=== PATIENT | female | born 1985 | race Caucasian/White ===

== ENCOUNTER 2019-10-14 11:54 | Emergency (ER) | payer MEDICAID ==
[2019-10-14 12:20] LABS: BASOPHILS % (AUTO) 0.5 %; EOSINOPHILS % (AUTO) 0.6 %; HGB - HEMOGLOBIN 13.8 g/dL (12.0-16.0); LYMPHOCYTES % (AUTO) 32.3 %; MEAN CORPUSCULAR HEMOGLOBIN 28.4 pg (27.0-31.0); MEAN CORPUSCULAR HGB CONC 32.4 g/dL (32.0-36.0); MEAN CORPUSCULAR VOLUME 87.7 fL (81.0-99.0); MEAN PLATELET VOLUME 9.6 fL (7.9-10.8); MONOCYTES # (AUTO) 0.5 10^3/uL (0.0-1.0); MONOCYTES % (AUTO) 8.2 %; NEUTROPHILS # (AUTO) 3.6 10^3/uL (1.5-6.6); NEUTROPHILS % (AUTO) 57.9 %; PLT - PLATELET COUNT 241 10^3/uL (130-450); RED BLOOD COUNT 4.86 10^6/uL (4.20-5.40); RED CELL DISTRIBUTION WIDTH 13.8 % (12.0-15.0); WHITE BLOOD COUNT 6.2 x10^3/uL (4.8-10.8)
[2019-10-14 12:31] LABS: ALBUMIN 3.5 g/dL (3.2-5.5); ALBUMIN/GLOBULIN RATIO 0.8 (1.0-2.2); BILIRUBIN,TOTAL 0.8 mg/dL (0.2-1.0); CALCIUM 8.5 mg/dL (8.5-10.3); CREATININE 0.5 mg/dL (0.4-1.0); TOTAL PROTEIN 7.9 g/dL (6.7-8.2)
[2019-10-14 12:35] LABS: BILIRUBIN,URINE NEGATIVE (NEGATIVE); GLUCOSE, URINE (UA) NEGATIVE (NEGATIVE); KETONES,URINE (UA) NEGATIVE (NEGATIVE); LEUKOCYTE ESTERASE, URINE NEGATIVE (NEGATIVE); NITRITE,URINE NEGATIVE (NEGATIVE); OCCULT BLOOD,URINE MODERATE (NEGATIVE); PROTEIN,URINE NEGATIVE (NEGATIVE); UROBILINOGEN,URINE 0.2 (NORMAL) E.U./dL (NORMAL)
[2019-10-14 12:36] LABS: CLARITY,URINE HAZY (CLEAR)
[2019-10-14 12:43] LABS: BACTERIA,URINE Rare /HPF (None Seen); RBC,URINE 0-5 /HPF (0-5); SQUAMOUS EPITHELIAL CELL,UR MANY Squamous (<= Few)
--- NOTE | 2019-10-14 12:56 | ED Physician Documentation ---
History of Present Illness - Stated complaint Stated Complaint: FEM - Chief complaint Chief Complaint: Abd Pain - History obtained from History obtained from: Patient - Additonal information Additional information: Irish-speaking patient comes emergency department complaining of an episode of brownish bleeding with urination which she thinks was coming from her vagina this morning. Patient states that she has not been having any pain. She is about 12 weeks and is scheduled to have an ultrasound tomorrow. She does have an [employer] PIT CREW PERSON that she has been seeing for her care. Patient denies any trauma but does note that she was sexually active 2 nights ago. She has had 2 other pregnancies which have not had any complications. Patient denies any other symptoms of illness. No dysuria. No nausea or vomiting. No bleeding since the incident. Patient has not noticed any blood in her underwear, but only had the episode when she urinated when she wiped. She states she is not bleeding at this time. Patient denies seeing any other tissue or clots with blood. No other complaints at this time. Review of Systems Ten Systems: 10 systems reviewed and negative Constitutional: reports: Reviewed and negative Eyes: reports: Reviewed and negative Ears: reports: Reviewed and negative Nose: reports: Reviewed and negative Throat: reports: Reviewed and negative Cardiac: reports: Reviewed and negative Respiratory: reports: Reviewed and negative GI: reports: Reviewed and negative : reports: Vaginal bleeding Skin: reports: Reviewed and negative Musculoskeletal: reports: Reviewed and negative Neurologic: reports: Reviewed and negative Psychiatric: reports: Reviewed and negative Endocrine: reports: Reviewed and negative Immunocompromised: reports: Reviewed and negative PD PAST MEDICAL HISTORY - Present Medications Home Medications: Ambulatory Orders Medication Instructions Recorded Confirmed No Known Home Medications 10/14/19 10/14/19 - Allergies Allergies/Adverse Reactions: Allergies Allergy/AdvReac Type Severity Reaction Status Date / Time No Known Drug Allergies Allergy Verified 10/14/19 12:02 PD ED PE NORMAL - Vitals Vital signs reviewed: Yes - General General: Alert and oriented X 3, No acute distress - HEENT HEENT: Atraumatic, PERRL, EOMI, Moist mucous membranes - Neck Neck: Supple, no meningeal sign - Cardiac Cardiac: RRR, No murmur - Respiratory Respiratory: No respiratory distress, Clear bilaterally - Abdomen Abdomen: Soft, Non tender, Non distended - Back Back: No CVA TTP - Derm Derm: Normal color, Warm and dry, No rash - Extremities Extremities: No deformity, No edema, No calf tenderness / cord - Neuro Neuro: Alert and oriented X 3, Other (Grossly normal) - Psych Psych: Normal mood, Normal affect Results - Vitals Vitals: Vital Signs - 24 hr 10/14/19 10/14/19 11:55 14:20 Temperature 36.8 C 36.8 C Heart Rate 65 61 Respiratory 18 16 Rate Blood Pressure 142/85 H 133/75 H O2 Saturation 99 99 Oxygen O2 Source Room air - Labs Labs: Laboratory Tests 10/14/19 10/14/19 10/14/19 12:10 12:10 12:10 WBC 6.2 RBC 4.86 Hgb 13.8 Hct 42.6 MCV 87.7 MCH 28.4 MCHC 32.4 RDW 13.8 Plt Count 241 MPV 9.6 Neut # (Auto) 3.6 Lymph # (Auto) 2.0 [place] # (Auto) 0.5 Eos # (Auto) 0.0 Baso # (Auto) 0.0 Absolute Nucleated RBC 0.00 Nucleated RBC % 0.0 Sodium 134 L Potassium 3.6 Chloride 100 L Carbon Dioxide 22 Anion Gap 12.0 BUN 6 Creatinine 0.5 Estimated GFR (MDRD) 140 Glucose 93 Calcium 8.5 Total Bilirubin 0.8 AST 100 H ALT 179 H Alkaline Phosphatase 79 Total Protein 7.9 Albumin 3.5 Globulin 4.4 H Albumin/Globulin Ratio 0.8 L Lipase 35 Urine Color Urine Clarity Urine pH Ur Specific [place] Urine Protein Urine Glucose (UA) Urine Ketones Urine Occult Blood Urine Nitrite Urine Bilirubin Urine Urobilinogen Ur Leukocyte Esterase Urine RBC Urine WBC Ur Squamous Epith Cells Urine Bacteria Ur Microscopic Review Urine Culture Comments Blood Type AB POSITIVE 10/14/19 12:35 WBC RBC Hgb Hct MCV MCH MCHC RDW Plt Count MPV Neut # (Auto) Lymph # (Auto) [place] # (Auto) Eos # (Auto) Baso # (Auto) Absolute Nucleated RBC Nucleated RBC % Sodium Potassium Chloride Carbon Dioxide Anion Gap BUN Creatinine Estimated GFR (MDRD) Glucose Calcium Total Bilirubin AST ALT Alkaline Phosphatase Total Protein Albumin Globulin Albumin/Globulin Ratio Lipase Urine Color YELLOW Urine Clarity HAZY Urine pH 7.0 Ur Specific [place] 1.015 Urine Protein NEGATIVE Urine Glucose (UA) NEGATIVE Urine Ketones NEGATIVE Urine Occult Blood MODERATE H Urine Nitrite NEGATIVE Urine Bilirubin NEGATIVE Urine Urobilinogen 0.2 (NORMAL) Ur Leukocyte Esterase NEGATIVE Urine RBC 0-5 Urine WBC 0-3 Ur Squamous Epith Cells MANY Squamous H Urine Bacteria Rare Ur Microscopic Review INDICATED Urine Culture Comments NOT INDICATED Blood Type PD MEDICAL DECISION MAKING - ED course Complexity details: reviewed old records, reviewed results, re-evaluated patient, considered differential, d/w patient ED course: The patient was extremely well-appearing, and was not currently bleeding. I suspected she probably either had a subchorionic hemorrhage or some cervical bleeding from the sexual activity. The patient had no pain was hemodynamically stable, and given these 2 things, I felt that she was able to wait to have her ultrasound until tomorrow. Her work-up here was unremarkable. An attempt was made to find heart tones, but this was unsuccessful, so bedside ultrasound was performed. This showed a sac within the uterus, but without an obvious fetus. No cardiac activity was noted in any of the tissue associated with the sac. I discussed with the patient through trace clerk services that at this point in time, we have found an empty sac in the uterus, but no evidence of the fetus. It is possible, though unlikely that the is significantly earlier than the patient thought. However, given the bleeding that the patient has had, along with the lack of evidence of development, it is very likely that the patient has an impending miscarriage. I have discussed with the patient that it is important for her to follow-up for her formal ultrasound tomorrow to get exact measurements and gestational dating. She should also plan to follow-up with her [employer]W PERSON within the next 3 days for repeat beta hCG levels to further evaluate. We have discussed that if the patient begins bleeding again, she is most likely having a miscarriage. If she develops severe pain or very heavy vaginal bleeding with lightheadedness or shortness of breath, she should return to the emergency department. Departure - Departure Disposition: 01 Home, Self Care Clinical Impression: Threatened affecting intrauterine Condition: Stable Instructions: ED Miscarriage Poss Print Language: Irish Comments: We have performed a bedside ultrasound today which shows a sac in your uterus, but as yet, we do not see developing fetus within the sac. It is possible that your is earlier than you thought it was, but it is also possible that the baby is not developing and you will have a miscarriage. The only way to know for sure is to get repeat hormone levels and ultrasounds done. You should continue your plans to follow-up for ultrasound tomorrow, and should also see your OB doctor within the next 3 days to have a repeat set of hormones done. Please call tomorrow to set up an appointment to be seen in the next 2 days to have the repeat hormones done. At that time, your doctor can review your formal ultrasound results and determine whether further testing is needed. If you start bleeding, you are most likely having a miscarriage, and your body will take care of this on its own. However, if you develop severe pain or bleeding, you should return to the emergency department. Discharge Date/Time: 10/14/19 14:35
[2019-10-14 14:21] VITALS: BP 133/75
== END 2019-10-14 14:35 | disposition home or self-care (01) ==
LOC: ED 11:54
DX: O20.0 Threatened abortion (principal); Z3A.12 12 weeks gestation of pregnancy
CPT/HCPCS: 36415; 80053; 81001; 81003; 83690; 84702; 85025; 86900; 86901; 87086; 99284

== ENCOUNTER 2019-10-15 12:30 | Outpatient (CLI) | payer MEDICAID ==
--- NOTE | 2019-10-15 16:30 | Ultrasound Report ---
PROCEDURE: OB First Trimester INDICATIONS: POSITIVE TEST OUTSIDE/PRIOR DATING DATA: Last menstrual period (LMP): 07/10/19. LMP-based estimated date of delivery (FARHAN): 04/15/20. First dating scan (date and location): 10/15/19. Estimated date of delivery (FARHAN) from first dating scan: 06/09/20. TECHNIQUE: Real-time scanning was performed of the fetus and maternal pelvic organs, with image documentation. COMPARISON: none FINDINGS: Embryo: Intrauterine with crown rump length measuring 0.38 cm, corresponding to 6 weeks 0 days. Measurement variability in dating: +/- 4 weeks by LMP, +/- 7 days by mean sac diameter (use before 6 weeks gestation if crown-rump length not able to be measured), +/- 5 days by crown-rump length (6-12 weeks gestation). Maternal organs: Ovaries are unremarkable. Limited images through the kidneys demonstrate no hydron ephrosis. IMPRESSION: 1. Single live intrauterine with ultrasound gestational age of 6 weeks 0 days, with ultra sound FARHAN of 06/09/20. 2. Recommend followup imaging at 20-22 weeks for dates and anatomy. Reviewed by: Sybil Millan MD on 10/15/2019 4:28 PM PDT Approved by: Sybil Millan MD on 10/15/2019 4:28 PM PDT Station ID: [id number]
--- NOTE | 2019-10-15 16:31 | Ultrasound Report ---
PROCEDURE: OB Transvaginal INDICATIONS: POSITIVE TEST OUTSIDE/PRIOR DATING DATA: Last menstrual period (LMP): 07/10/19. LMP-based estimated date of delivery (FARHAN): 04/15/20. First dating scan (date and location): 10/15/19. Estimated date of delivery (FARHAN) from first dating scan: 06/09/20. TECHNIQUE: Real-time scanning was performed of the fetus and maternal pelvic organs, with image documentation. COMPARISON: none FINDINGS: Embryo: Intrauterine with crown rump length measuring 0.38 cm, corresponding to 6 weeks 0 days. Measurement variability in dating: +/- 4 weeks by LMP, +/- 7 days by mean sac diameter (use before 6 weeks gestation if crown-rump length not able to be measured), +/- 5 days by crown-rump length (6-12 weeks gestation). Maternal organs: Ovaries are unremarkable. Limited images through the kidneys demonstrate no hydron ephrosis. IMPRESSION: 1. Single live intrauterine with ultrasound gestational age of 6 weeks 0 days, with ultra sound FARHAN of 06/09/20. 2. Recommend followup imaging at 20-22 weeks for dates and anatomy. Reviewed by: Sybil Millan MD on 10/15/2019 4:30 PM PDT Approved by: Sybil Millan MD on 10/15/2019 4:30 PM PDT Station ID: [id number]
== END 2019-10-15 12:31 | disposition home or self-care (01) ==
LOC: DI 12:30
PROVIDERS: ATTEND Obstetrics & Gynecology
DX: Z32.01 Encounter for pregnancy test, result positive (principal)
CPT/HCPCS: 76801; 76817

== ENCOUNTER 2019-10-18 07:00 | Outpatient (CLI) | payer MEDICAID ==
[2019-10-19 19:35] LABS: TRICHOMONAS VAGINALIS DNA NEGATIVE (NEGATIVE)
== END 2019-10-18 23:59 | disposition home or self-care (01) ==
LOC: LAB.R 07:00
PROVIDERS: ATTEND Obstetrics & Gynecology
DX: Z34.80 Encounter for supervision of other normal pregnancy, unspecified trimester (principal)
CPT/HCPCS: 87491; 87591; 87661

== ENCOUNTER 2019-10-29 10:08 | Outpatient (CLI) | payer MEDICAID ==
[2019-10-29 11:11] LABS: THYROID STIMULATING HORMONE 4.48 uIU/mL (0.34-5.60)
[2019-10-29 11:13] LABS: FREE T4 (FREE THYROXINE) 0.81 ng/dL (0.58-1.64)
[2019-10-29 12:27] LABS: HEMOGLOBIN A1c% 5.1 % (4.27-6.07)
== END 2019-10-29 10:09 | disposition home or self-care (01) ==
LOC: LAB 10:08
PROVIDERS: ATTEND Obstetrics & Gynecology
DX: Z34.80 Encounter for supervision of other normal pregnancy, unspecified trimester (principal)
CPT/HCPCS: 36415; 83036; 84439; 84443

== ENCOUNTER 2019-10-30 22:51 | Emergency (ER) | payer MEDICAID ==
--- NOTE | 2019-10-30 23:00 | ED Physician Documentation ---
PD HPI FEMALE - Stated complaint Stated Complaint: F /8WKS PREG - History obtained from History obtained from: Patient, Other (translation service) - History of Present Illness Timing - onset: Today. No: Yesterday (she states only spotting yesterday when in OB office. Some cramps. Had office U/S transabd that did not see heart beat. Was to get formal U/S including transvaginal. Has increased cramps and bleeding today.) Timing - details: Gradual onset, Waxing and waning (some cramping today and noted some red blood and clots vaginally this evening.) Associated symptoms: Pelvic pain, Vaginal bleeding. 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 denies: Vomiting, Diarrhea : reports: Vaginal bleeding. denies: Dysuria, Frequency Skin: denies: Rash, Lesions Neurologic: reports: Generalized weakness. denies: Near syncope PD PAST MEDICAL HISTORY - Past Medical History Past Medical History: No - Present Medications Home Medications: Ambulatory Orders Medication Instructions Recorded Confirmed No Known Home Medications 10/14/19 10/14/19 - Allergies Allergies/Adverse Reactions: Allergies Allergy/AdvReac Type Severity Reaction Status Date / Time No Known Drug Allergies Allergy Verified 10/30/19 23:04 - Living Situation Living Situation: reports: With spouse/s.o. Living Arrangement: reports: At home PD ED PE NORMAL - Vitals Vital signs reviewed: Yes - General General: Alert and oriented X 3, Well developed/nourished - HEENT HEENT: Moist mucous membranes, Pharynx benign - Cardiac Cardiac: RRR, No murmur - Respiratory Respiratory: Clear bilaterally - Abdomen Abdomen: Normal bowel sounds, Soft, Non distended, No organomegaly, Other (some tender without guarding nor percussion tenderness in suprapubic area. ) - Female Female : Deferred - Derm Derm: Normal color, Warm and dry Results - Vitals Vitals: Vital Signs - 24 hr 10/30/19 10/30/19 10/31/19 22:55 23:15 01:48 Temperature 37.0 C 37 C 36.6 C Heart Rate 72 72 65 Respiratory 14 14 19 Rate Blood Pressure 158/89 H 158/89 H 127/58 L O2 Saturation 98 98 100 Oxygen O2 Source Room air - Labs Labs: Laboratory Tests 10/30/19 10/30/19 10/30/19 23:20 23:20 23:20 WBC 6.6 RBC 4.71 Hgb 13.4 Hct 41.2 MCV 87.5 MCH 28.5 MCHC 32.5 RDW 13.4 Plt Count 237 MPV 9.6 Neut # (Auto) 3.7 Lymph # (Auto) 2.2 [place] # (Auto) 0.6 Eos # (Auto) 0.1 Baso # (Auto) 0.0 Absolute Nucleated RBC 0.00 Nucleated RBC % 0.0 Sodium 135 Potassium 3.8 Chloride 102 Carbon Dioxide 25 Anion Gap 8.0 BUN 11 Creatinine 0.6 Estimated GFR (MDRD) 113 Glucose 94 Calcium 9.0 Total Bilirubin 0.6 AST 95 H ALT 178 H Alkaline Phosphatase 79 Total Protein 7.9 Albumin 3.5 Globulin 4.4 H Albumin/Globulin Ratio 0.8 L Lipase 33 HCG, Quant Urine Color Urine Clarity Urine pH Ur Specific [place] Urine Protein Urine Glucose (UA) Urine Ketones Urine Occult Blood Urine Nitrite Urine Bilirubin Urine Urobilinogen Ur Leukocyte Esterase Urine RBC Urine WBC Ur Squamous Epith Cells Urine Bacteria Ur Microscopic Review Urine Culture Comments Blood Type AB POSITIVE 10/30/19 10/30/19 23:20 23:29 WBC RBC Hgb Hct MCV MCH MCHC RDW Plt Count MPV Neut # (Auto) Lymph # (Auto) [place] # (Auto) Eos # (Auto) Baso # (Auto) Absolute Nucleated RBC Nucleated RBC % Sodium Potassium Chloride Carbon Dioxide Anion Gap BUN Creatinine Estimated GFR (MDRD) Glucose Calcium Total Bilirubin AST ALT Alkaline Phosphatase Total Protein Albumin Globulin Albumin/Globulin Ratio Lipase HCG, Quant 5509.00 Urine Color YELLOW Urine Clarity HAZY Urine pH 6.0 Ur Specific [place] 1.020 Urine Protein NEGATIVE Urine Glucose (UA) NEGATIVE Urine Ketones NEGATIVE Urine Occult Blood LARGE H Urine Nitrite NEGATIVE Urine Bilirubin NEGATIVE Urine Urobilinogen 0.2 (NORMAL) Ur Leukocyte Esterase NEGATIVE Urine RBC TNTC H Urine WBC 0-3 Ur Squamous Epith Cells MOD Squamous H Urine Bacteria Few Ur Microscopic Review INDICATED Urine Culture Comments NOT INDICATED Blood Type - Rads (name of study) No standard instances Radiology: Prelim report reviewed (gestational sac without embryonic sac nor FHR; size c/w 7w6d.), See rad report PD MEDICAL DECISION MAKING - ED course Complexity details: reviewed results (gestational sac without FHR, pole. Quant is high enough that should see FHR but could be just related to early . Will need to repeat quant in 2-3 days and follow with OB.), considered differential, d/w patient Departure - Departure Disposition: Home, Self Care Clinical Impression: Vaginal bleeding Qualifiers: Weeks of gestation: 8 weeks Qualified Code(s): Z3A.08 - 8 weeks gestation of Condition: Stable Record reviewed to determine appropriate education?: Yes Instructions: ED Miscarriage Poss Follow-Up: Neelam Benavides MD [Provider Admit Priv/Credential] - Print Language: Lebanese Comments: Drink lots of fluid. Tylenol or ibuprofen as needed for pains or cramps. The ultrasound showed an intrauterine gestational sac but no heartbeat is visible at this time. That may be because of the earliness of the . Follow-up with the MACHINE ADJUSTER HELPER in the office in 2 to 3 days for recheck and a repeat of the blood test. This will give a better indication if there is an early miscarriage or was benign bleeding. Return if increasing pain or cramps, persistent bleeding, fever, other concerns Discharge Date/Time: 10/31/19 01:48
[2019-10-30 23:27] LABS: BASOPHILS % (AUTO) 0.3 %; EOSINOPHILS # (AUTO) 0.1 10^3/uL (0.0-0.7); EOSINOPHILS % (AUTO) 1.1 %; HGB - HEMOGLOBIN 13.4 g/dL (12.0-16.0); LYMPHOCYTES # (AUTO) 2.2 10^3/uL (1.5-3.5); LYMPHOCYTES % (AUTO) 33.8 %; MEAN CORPUSCULAR HEMOGLOBIN 28.5 pg (27.0-31.0); MEAN CORPUSCULAR HGB CONC 32.5 g/dL (32.0-36.0); MEAN CORPUSCULAR VOLUME 87.5 fL (81.0-99.0); MEAN PLATELET VOLUME 9.6 fL (7.9-10.8); MONOCYTES # (AUTO) 0.6 10^3/uL (0.0-1.0); MONOCYTES % (AUTO) 8.6 %; NEUTROPHILS # (AUTO) 3.7 10^3/uL (1.5-6.6); NEUTROPHILS % (AUTO) 55.7 %; PLT - PLATELET COUNT 237 10^3/uL (130-450); RED BLOOD COUNT 4.71 10^6/uL (4.20-5.40); RED CELL DISTRIBUTION WIDTH 13.4 % (12.0-15.0); WHITE BLOOD COUNT 6.6 x10^3/uL (4.8-10.8)
[2019-10-30 23:38] LABS: BILIRUBIN,URINE NEGATIVE (NEGATIVE); GLUCOSE, URINE (UA) NEGATIVE (NEGATIVE); KETONES,URINE (UA) NEGATIVE (NEGATIVE); LEUKOCYTE ESTERASE, URINE NEGATIVE (NEGATIVE); NITRITE,URINE NEGATIVE (NEGATIVE); OCCULT BLOOD,URINE LARGE (NEGATIVE); PROTEIN,URINE NEGATIVE (NEGATIVE); UROBILINOGEN,URINE 0.2 (NORMAL) E.U./dL (NORMAL)
[2019-10-30 23:40] LABS: CLARITY,URINE HAZY (CLEAR)
[2019-10-30 23:44] LABS: BACTERIA,URINE Few /HPF (None Seen); RBC,URINE TNTC /HPF (0-5); SQUAMOUS EPITHELIAL CELL,UR MOD Squamous (<= Few)
[2019-10-30 23:45] LABS: ALBUMIN 3.5 g/dL (3.2-5.5); ALBUMIN/GLOBULIN RATIO 0.8 (1.0-2.2); BILIRUBIN,TOTAL 0.6 mg/dL (0.2-1.0); CREATININE 0.6 mg/dL (0.4-1.0); TOTAL PROTEIN 7.9 g/dL (6.7-8.2)
[2019-10-31 01:50] VITALS: BP 127/58
--- NOTE | 2019-10-31 08:21 | Ultrasound Report ---
PROCEDURE: OB Transvaginal INDICATIONS: early preg, EGA 8 wk, vag bleeding/cramps OUTSIDE/PRIOR DATING DATA: Last menstrual period (LMP): 07/10/2019 LMP-based estimated date of delivery (FARHAN): 04/15/2020. First dating scan (date and location): 10/15/2019. Estimated date of delivery (FARHAN) from first dating scan: 06/09/2020. TECHNIQUE: Real-time scanning was performed of the fetus and maternal pelvic organs, with image documentation. COMPARISON: OB ultrasound 10/15/2019 FINDINGS: Embryo: Intrauterine gestational sac is identified measuring 2.8 cm corresponding to 7 weeks 6 days. No pole is identified. Measurement variability in dating: +/- 4 weeks by LMP, +/- 7 days by mean sac diameter (use before 6 weeks gestation if crown-rump length not able to be measured), +/- 5 days by crown-rump length (6-12 weeks gestation). Maternal organs: Ovaries are unremarkable. Limited images through the kidneys demonstrate no hydron ephrosis. IMPRESSION: 1. Previous crown-rump length identified on 10/15/2019 is no longer visualized and gestational sac dem onstrates measurements inconsistent with normal growth. Overall appearance is most consistent with in terval spontaneous . Reviewed by: Sybil Millan MD on 10/31/2019 8:20 AM PDT Approved by: Sybil Millan MD on 10/31/2019 8:20 AM PDT Station ID: [id number]
--- NOTE | 2019-10-31 08:21 | Ultrasound Report ---
PROCEDURE: OB First Trimester INDICATIONS: early preg, EGA 8 wk, vag bleeding/cramps OUTSIDE/PRIOR DATING DATA: Last menstrual period (LMP): 07/10/2019 LMP-based estimated date of delivery (FARHAN): 04/15/2020. First dating scan (date and location): 10/15/2019. Estimated date of delivery (FARHAN) from first dating scan: 06/09/2020. TECHNIQUE: Real-time scanning was performed of the fetus and maternal pelvic organs, with image documentation. COMPARISON: OB ultrasound 10/15/2019 FINDINGS: Embryo: Intrauterine gestational sac is identified measuring 2.8 cm corresponding to 7 weeks 6 days. No pole is identified. Measurement variability in dating: +/- 4 weeks by LMP, +/- 7 days by mean sac diameter (use before 6 weeks gestation if crown-rump length not able to be measured), +/- 5 days by crown-rump length (6-12 weeks gestation). Maternal organs: Ovaries are unremarkable. Limited images through the kidneys demonstrate no hydron ephrosis. IMPRESSION: 1. Previous crown-rump length identified on 10/15/2019 is no longer visualized and gestational sac dem onstrates measurements inconsistent with normal growth. Overall appearance is most consistent with in terval spontaneous . Reviewed by: Sybil Millan MD on 10/31/2019 8:19 AM PDT Approved by: Sybil Millan MD on 10/31/2019 8:19 AM PDT Station ID: [id number]
== END 2019-10-31 01:48 | disposition home or self-care (01) ==
LOC: ED 22:51
DX: O20.9 Hemorrhage in early pregnancy, unspecified (principal); Z3A.08 8 weeks gestation of pregnancy
CPT/HCPCS: 36415; 76801; 76817; 80053; 81001; 81003; 83690; 84702; 85025; 86900; 86901; 87086; 99284

== ENCOUNTER 2019-11-01 17:51 | Outpatient (CLI) | payer MEDICAID | END 2019-11-01 17:52 | disposition home or self-care (01) | LOC: LAB 17:51 | PROVIDERS: ATTEND Obstetrics & Gynecology | DX: O03.4 Incomplete spontaneous abortion without complication (principal) | CPT/HCPCS: 36415; 84702 ==

== ENCOUNTER 2019-11-03 09:50 | Emergency (ER) | payer MEDICAID ==
--- NOTE | 2019-11-03 10:16 | ED Physician Documentation ---
PD HPI FEMALE - Stated complaint Stated Complaint: FEMAL - Chief complaint Chief Complaint: Abd Pain - History obtained from History obtained from: Patient, Other (translation tablet) - History of Present Illness Timing - onset: How many days ago (5-6) Timing - duration: Days (5-6) Timing - details: Gradual onset (Vaginal bleeding and mild lower cramping intermittently over the last 5 to 6 days. Seen in the office gynecology and then in the ER 4 days ago. Had ultrasound showing gestational sac and quantitative hCG 5000. Follow-up quant 2 days ago was slightly lower. Had increased vaginal bleeding today.), Waxing and waning, Still present in ED (had increased vag bleeding today with several pads over few hours. No clots. Tapering bleeding now.) Associated symptoms: Abdominal pain, Pelvic pain, Vaginal bleeding. No: Fever, Vaginal pain, Vaginal discharge Contributing factors: (about 8 weeks EGA.) Recently seen: Clinic (2 days ago), Emergency Dept (4 days ago and had OB U/S showing gestational sac without pole nor any FHB. Quant above 5000. Had follow up in office 2 days after with quant falling and was in 4000 range.) Review of Systems Constitutional: denies: Fever, Chills Cardiac: denies: Chest pain / pressure, Palpitations Respiratory: denies: Dyspnea, Cough GI: denies: Nausea, Vomiting, Diarrhea : reports: Vaginal bleeding, Now EGA Musculoskeletal: denies: Back pain Neurologic: denies: Generalized weakness, Near syncope PD PAST MEDICAL HISTORY - Past Medical History Past Medical History: No Cardiovascular: None Respiratory: None Endocrine/Autoimmune: None - Present Medications Home Medications: Ambulatory Orders Medication Instructions Recorded Confirmed No Known Home Medications 10/14/19 10/14/19 - Allergies Allergies/Adverse Reactions: Allergies Allergy/AdvReac Type Severity Reaction Status Date / Time No Known Drug Allergies Allergy Verified 11/03/19 10:04 PD ED PE NORMAL - Vitals Vital signs reviewed: Yes - General General: Alert and oriented X 3, No acute distress, Well developed/nourished - Neck Neck: Supple, no meningeal sign, No adenopathy - Cardiac Cardiac: RRR, No murmur - Respiratory Respiratory: Clear bilaterally - Abdomen Abdomen: Soft, Non tender, Non distended - Female Female : Deferred - Rectal Rectal: Deferred - Back Back: No CVA TTP - Derm Derm: Normal color, Warm and dry - Neuro Neuro: Alert and oriented X 3, No motor deficit, Normal speech Results - Vitals Vitals: Vital Signs - 24 hr 11/03/19 11/03/19 11/03/19 10:01 13:00 13:17 Temperature 37.0 C Heart Rate 76 56 L 80 Respiratory 15 16 18 Rate Blood Pressure 146/74 H 134/57 H 130/79 O2 Saturation 98 98 100 Oxygen O2 Source Room air - Labs Labs: Laboratory Tests 11/03/19 11/03/19 11/03/19 10:11 10:26 10:26 WBC 5.5 RBC 4.47 Hgb 12.9 Hct 39.7 MCV 88.8 MCH 28.9 MCHC 32.5 RDW 13.5 Plt Count 223 MPV 9.6 Neut # (Auto) 3.1 Lymph # (Auto) 1.7 [place] # (Auto) 0.5 Eos # (Auto) 0.1 Baso # (Auto) 0.0 Absolute Nucleated RBC 0.00 Nucleated RBC % 0.0 Sodium 138 Potassium 3.7 Chloride 102 Carbon Dioxide 23 Anion Gap 13.0 BUN 8 Creatinine 0.6 Estimated GFR (MDRD) 113 Glucose 106 H Calcium 8.6 Total Bilirubin 0.7 AST 59 H ALT 142 H Alkaline Phosphatase 80 Total Protein 7.7 Albumin 3.4 Globulin 4.3 H Albumin/Globulin Ratio 0.8 L Lipase 31 HCG, Quant 1249.43 - Rads (name of study) OB U/S Radiology: Prelim report reviewed (No gestational sac seen on this exam. No free fluid nor adnexal abnormalities.), See rad report PD MEDICAL DECISION MAKING - ED course Complexity details: considered differential, d/w patient, d/w solutions market consultant (Antoine with Dr. Benavides by phone. Given the ultrasound not showing any gestational sac now and the quant hCG much lower at 1200, it does seem to be a completed miscarriage at this point. With lessening bleeding, she directed the patient to be treated outpatient and follow-up in the office 2-3 days) Departure - Departure Disposition: 01 Home, Self Care Clinical Impression: Complete miscarriage Condition: Stable Record reviewed to determine appropriate education?: Yes Instructions: ED Miscarriage Completed Follow-Up: Neelam Benavides MD [Provider Admit Priv/Credential] - Print Language: Citizen Of [place] Comments: Treated. Use Tylenol or ibuprofen if needed for pains. Return if significant vaginal bleeding again. I would anticipated decreasing over the next couple of days and be minimal. Follow-up with women's health clinic early this coming week, call for an appointment. Discharge Date/Time: 11/03/19 13:17
[2019-11-03] MEDS ORDERED: SODIUM CHLORIDE 0.9% 1,000 ML IV STA (10:18)
[2019-11-03 10:37] LABS: BASOPHILS % (AUTO) 0.6 %; EOSINOPHILS # (AUTO) 0.1 10^3/uL (0.0-0.7); EOSINOPHILS % (AUTO) 1.1 %; HGB - HEMOGLOBIN 12.9 g/dL (12.0-16.0); LYMPHOCYTES # (AUTO) 1.7 10^3/uL (1.5-3.5); LYMPHOCYTES % (AUTO) 31.4 %; MEAN CORPUSCULAR HEMOGLOBIN 28.9 pg (27.0-31.0); MEAN CORPUSCULAR HGB CONC 32.5 g/dL (32.0-36.0); MEAN CORPUSCULAR VOLUME 88.8 fL (81.0-99.0); MEAN PLATELET VOLUME 9.6 fL (7.9-10.8); MONOCYTES # (AUTO) 0.5 10^3/uL (0.0-1.0); MONOCYTES % (AUTO) 8.8 %; NEUTROPHILS # (AUTO) 3.1 10^3/uL (1.5-6.6); NEUTROPHILS % (AUTO) 57.5 %; PLT - PLATELET COUNT 223 10^3/uL (130-450); RED BLOOD COUNT 4.47 10^6/uL (4.20-5.40); RED CELL DISTRIBUTION WIDTH 13.5 % (12.0-15.0); WHITE BLOOD COUNT 5.5 x10^3/uL (4.8-10.8)
[2019-11-03 10:52] LABS: ALBUMIN 3.4 g/dL (3.2-5.5); ALBUMIN/GLOBULIN RATIO 0.8 (1.0-2.2); BILIRUBIN,TOTAL 0.7 mg/dL (0.2-1.0); CALCIUM 8.6 mg/dL (8.5-10.3); CREATININE 0.6 mg/dL (0.4-1.0); TOTAL PROTEIN 7.7 g/dL (6.7-8.2)
--- NOTE | 2019-11-03 11:54 | Ultrasound Report ---
PROCEDURE: OB First Trimester INDICATIONS: recent early IUP with now increased bleeding OUTSIDE/PRIOR DATING DATA: Last menstrual period (LMP): 07/10/19. LMP-based estimated date of delivery (FARHAN): 04/15/20. First dating scan (date and location): 10/15/19. Estimated date of delivery (FARHAN) from first dating scan: 06/09/20. TECHNIQUE: Real-time scanning was performed of the fetus and maternal pelvic organs, with image documentation. COMPARISON: 10/30/2019, 10/15/2019 FINDINGS: Embryo: No findings of an intrauterine can be seen. No gestational sac, pole, or yol k sac can be seen. No cardiac activity can be seen. There is a heterogeneous endometrial stripe , which measures up to 2.3 cm. Increased vascularity can be seen. Measurement variability in dating: +/- 4 weeks by LMP, +/- 7 days by mean sac diameter (use before 6 weeks gestation if crown-rump length not able to be measured), +/- 5 days by crown-rump length (6-12 weeks gestation). Maternal organs: Ovaries are within normal limits, with a left-sided corpus luteum seen that measure s up to 1.3 cm. Limited images through the kidneys demonstrate no hydronephrosis. IMPRESSION: No findings of a viable intrauterine can be seen. Heterogeneous endometrial stripe, with increased vascularity. The imaging findings are diagnostic of a spontaneous miscarriage in progress. Note: Concordant preliminary findings given by the assistant women's rowing coach upon the completion of the examination to Dr. Funez at 11:35 AM on 11/03/2019. Reviewed by: Everardo Thapa MD on 11/03/2019 10:52 AM [facility] Approved by: Everardo Thapa MD on 11/03/2019 10:52 AM G[facility] Station ID: [id number]
--- NOTE | 2019-11-03 12:47 | Ultrasound Report ---
PROCEDURE: OB Transvaginal INDICATIONS: early IUP with falling quant; now increased bleedi OUTSIDE/PRIOR DATING DATA: Last menstrual period (LMP): 07/10/19. LMP-based estimated date of delivery (FARHAN): 04/15/20. First dating scan (date and location): 10/15/19. Estimated date of delivery (FARHAN) from first dating scan: 06/09/20. TECHNIQUE: Real-time scanning was performed of the fetus and maternal p elvic organs, with image documentation. COMPARISON: 10/30/2019, 10/15/2019 FINDINGS: Embryo: No find ings of an intrauterine can be seen. No gestational sac, pole, or yolk sac can be see n. No cardiac activity can be seen. There is a heterogeneous endometrial stripe, which measures up to 2.3 cm. Increased vascularity can be seen. Measurement variability in dating: +/- 4 weeks by LMP, +/- 7 days by mean sac diameter (use before 6 weeks gestation if crown-rump length not able to b e measured), +/- 5 days by crown-rump length (6-12 weeks gestation). Maternal organs: Ovaries are wi thin normal limits, with a left-sided corpus luteum seen that measures up to 1.3 cm. Limited images t hrough the kidneys demonstrate no hydronephrosis. IMPRESSION: No findings of a viable intrauterin e can be seen. Heterogeneous endometrial stripe, with increased vascularity. The imaging f indings are diagnostic of a spontaneous miscarriage in progress. Note: Concordant preliminary find ings given by the roving frame tender upon the completion of the examination to Dr. Funez at 11:35 AM on . Reviewed by: Everardo Thapa MD on 11/03/2019 11:46 AM [facility] Approved by: Everardo Thapa MD on 11/03/2019 11:46 AM [email or web address] Station ID: [id number]
[2019-11-03] MEDS ORDERED: KETOROLAC 30 MG/ML VIAL IVP STA (12:49)
[2019-11-03 13:19] VITALS: BP 130/79
== END 2019-11-03 13:17 | disposition home or self-care (01) ==
LOC: ED 09:50
DX: O03.9 Complete or unspecified spontaneous abortion without complication (principal)
CPT/HCPCS: 36415; 76801; 76817; 80053; 83690; 84702; 85025; 86900; 86901; 96374; 99284

== ENCOUNTER 2019-11-15 11:04 | Outpatient (CLI) | payer MEDICAID ==
[2019-11-15 11:36] LABS: INR 1.1 (0.8-1.2); PT - PROTHROMBIN TIME 12.5 secs (9.9-12.6)
[2019-11-15 11:47] LABS: % IRON SATURATION 7 % (20-50); IRON 37 ug/dL (28-170); TOTAL IRON BINDING CAPACITY 556 ug/dL (250-450); TRANSFERRIN 397 mg/dL (192-382)
[2019-11-16 15:06] LABS: HEPATITIS A IGM NON-REACTIVE (NON-REACTIVE); HEPATITIS B SURFACE ANTIGEN NON-REACTIVE (NON-REACTIVE); HEPATITIS C ANTIBODY NON-REACTIVE (NON-REACTIVE)
== END 2019-11-15 11:05 | disposition home or self-care (01) ==
LOC: LAB 11:04
PROVIDERS: ATTEND Obstetrics & Gynecology
DX: R74.01 Elevation of levels of liver transaminase levels (principal); O03.4 Incomplete spontaneous abortion without complication
CPT/HCPCS: 36415; 80074; 83540; 84443; 84466; 84702; 85610; 85730